=== PATIENT | male | born 1970 | race Caucasian/White ===

== ENCOUNTER 2024-11-02 06:33 | Day surgery (SDC) | payer OTHER ==
[~2024-11-02] VITALS: Ht 185.4 cm; Wt 162.5 kg
[~2024-11-02 06:33] MED LIST: AMLO5 PO; JARDIANCE10 MG PO; Lactated Ringer's 1,000 ML IV SCH; METO25ER PO; OLME20 PO; OXYACE5T PO; PENVK500 PO
[2024-11-02] MEDS ORDERED: POTA20PAC PO (06:51)
[2024-11-02] MEDS ORDERED: BUME2 PO (06:52)
[2024-11-02] MEDS ORDERED: SPIR50 PO (06:53)
[2024-11-02 06:59] VITALS: BP 135/93
[2024-11-02] MEDS ORDERED: propofoL 60 ML IV ONE (06:59)
--- NOTE | 2024-11-02 07:00 | NUR ---
AMBULATORY INTO [facility]. PT DENIES PAIN OR SOB. HISTORY AND ALLEGIES REVIEWED. LUNGS CLEAR. NPO STATUS CONFIRMED. COLON PREP CLEAR/YELLOW. JAYSON IS PT RIDE HOME TODAY.
--- NOTE | 2024-11-02 07:39 | NUR ---
11/02/24 0739 Harley Lewis History, Chart, Medications and Allergies reviewed before start of procedure. MONITOR INTACT WITH CONTINUOUS PULSE OXIMETRY, CONTINUOUS END TITAL CO2, 3-LEAD EKG AND INTERMITTENT BLOOD PRESSURE. 3-LEAD EKG REVIEWED WITH PHYSICIAN PRIOR TO START OF PROCEDURE. O2 VIA POM INTACT THROUGHOUT SEDATION/PROCEDURE.
[2024-11-02 07:57] VITALS: BP 140/91
--- NOTE | 2024-11-02 08:15 | NUR ---
Discharge instructions reviewed with patient. Patient verbalizes understanding. Copy given to patient to take home. Discharged via wheelchair to private car for ride home. Patient States Post-Procedure ride home has been arranged WITH JAYSON HIGH.
== END 2024-11-02 08:16 | disposition home or self-care (01) ==
LOC: ORSCMMR 06:33 → ORD 07:30 → ORSCMMR 08:16
DX: Z12.11 Encounter for screening for malignant neoplasm of colon (principal); D12.8 Benign neoplasm of rectum; K57.90 Diverticulosis of intestine, part unspecified, without perforation or abscess without bleeding; Z80.0 Family history of malignant neoplasm of digestive organs; I10 Essential (primary) hypertension; G47.33 Obstructive sleep apnea (adult) (pediatric); E11.9 Type 2 diabetes mellitus without complications; K21.9 Gastro-esophageal reflux disease without esophagitis; E66.01 Morbid (severe) obesity due to excess calories; Z68.42 Body mass index [BMI] 45.0-49.9, adult; Z79.84 Long term (current) use of oral hypoglycemic drugs; Z79.899 Other long term (current) drug therapy
CPT/HCPCS: 88305; J2704; J7120